=== PATIENT | female | born 1965 | race American Indian/Alaskan Native ===

== ENCOUNTER 2020-02-28 20:53 | Inpatient (IN) | payer OTHER ==
--- NOTE | 2020-02-28 22:48 | Event Note ---
ED Screening Note Date of service: 02/28/20 (n) Time: 22:48 ED Screening Note: This is a 54-year-old female with a history of diabetes and hypertension presents with shortness of breath stating that she chest with positive for Covid today This initial assessment/diagnostic orders/clinical plan/treatment(s) is/are subject to change based on patients health status, clinical progression and re- assessment by fellow clinical providers in the ED. Further treatment and workup at subsequent clinical providers discretion. Patient/guardian urged not to elope from the ED as their condition may be serious if not clinically assessed and managed. Initial orders include: Chest x-ray, labs ordered.
--- NOTE | 2020-02-28 23:57 | XRay Report ---
CHEST 2 VIEWS 2861 INDICATION / CLINICAL INFORMATION: sob COMPARISON: None available. FINDINGS: SUPPORT DEVICES: None. HEART / MEDIASTINUM: No significant abnormality. LUNGS / PLEURA: Bilateral basilar density on PA view is thought likely due to the patient's size. No definite acute infiltrates or effusions are seen. No pneumothorax. ADDITIONAL FINDINGS: No significant additional findings. IMPRESSION: No significant acute abnormality Signer Name: Checo Coronado MD Signed: 02/28/2020 11:53 PM Workstation Name: [id number]
[2020-02-29 00:03] LABS: C-Reactive Protein 4.4 mg/dL (0.00-1.30)
[2020-02-29] MEDS ORDERED: dexAMETHasone 4 MG/ML VIAL IV ONE (01:59)
[2020-02-29] MEDS ORDERED: cefTRIAXone/NS 2 GM/100 ML 2 GM/100 ML BAG IV ONE (01:59)
[2020-02-29] MEDS ORDERED: AZITHROMYCIN/NS 500 MG/250 ML 500 MG/250 ML BAG IV ONE (01:59)
--- NOTE | 2020-02-29 02:00 | Emergency Department Report ---
ED Shortness of Breath HPI - General Chief Complaint: Dyspnea/Respdistress Stated Complaint: COVID Time Seen by Provider: 02/29/20 01:46 Source: patient Mode of arrival: Ambulatory Limitations: No Limitations - History of Present Illness Initial Comments: Patient is a 54-year-old female that presents emergency room with complaints of body aches, cough, fever, shortness of breath, chills. Patient states her symptoms started 2 days ago. Patient states she was tested for Covid yesterday and it came back positive. Patient also complains of loss of smell. Patient states her shortness of breath better with rest and worse with exertion. Patient denies chest pain. Patient denies abdominal pain. Patient denies nausea and vomiting. Patient denies diarrhea. Patient denies recent travel. Patient denies recent international travel. Patient denies sick contacts. Patient denies diarrhea. Patient denies coming in contact with anybody with symptoms of the novel coronavirus. MD Complaint: shortness of breath, cough -: Sudden, days(s) Severity: severe Consistency: constant Improves With: rest Worsens With: exertion Context: recent URI Associated Symptoms: fever, cough Treatments Prior to Arrival: none - Related Data Home Oxygen Therapy: No Allergies Allergy/AdvReac Type Severity Reaction Status Date / Time latex Allergy Shortness Verified 02/28/20 22:36 of Breath ED Review of Systems ROS: Stated complaint: COVID Other details as noted in HPI Constitutional: chills, fever, malaise Eyes: denies: eye pain, eye discharge, vision change ENT: denies: ear pain, throat pain Respiratory: cough, shortness of breath, SOB with exertion, SOB at rest. denies: wheezing Cardiovascular: denies: chest pain, palpitations Endocrine: no symptoms reported Gastrointestinal: denies: abdominal pain, nausea, diarrhea Genitourinary: denies: urgency, dysuria, discharge Musculoskeletal: myalgia. denies: back pain, joint swelling, arthralgia Skin: denies: rash, lesions Neurological: denies: headache, weakness, paresthesias Psychiatric: denies: anxiety, depression Hematological/Lymphatic: denies: easy bleeding, easy bruising ED Past Medical Hx - Past Medical History Previous Medical History?: Yes Hx Hypertension: Yes Hx Diabetes: Yes - Surgical History Past Surgical History?: Yes Additional Surgical History: fibroid removal 2008 - Family History Family history: no significant - Social History Smoking Status: Never Smoker Substance Use Type: None ED Physical Exam - General Limitations: No Limitations General appearance: alert, in distress - Head Head exam: Present: atraumatic, normocephalic - Eye Eye exam: Present: normal appearance - ENT ENT exam: Present: mucous membranes moist - Neck Neck exam: Present: normal inspection - Respiratory Respiratory exam: Present: respiratory distress, decreased breath sounds - Cardiovascular Cardiovascular Exam: Present: regular rate, normal rhythm. Absent: systolic murmur, diastolic murmur, rubs, gallop - GI/Abdominal GI/Abdominal exam: Present: soft, normal bowel sounds - Extremities Exam Extremities exam: Present: normal inspection - Back Exam Back exam: Present: normal inspection - Neurological Exam Neurological exam: Present: alert, oriented X3 - Psychiatric Psychiatric exam: Present: normal affect, normal mood - Skin Skin exam: Present: warm, dry, intact, normal color. Absent: rash ED Course Vital Signs 02/28/20 22:35 Temperature 98.3 F Pulse Rate 80 Respiratory 22 Rate Blood Pressure 131/81 O2 Sat by Pulse 95 Oximetry - Reevaluation(s) Reevaluation #1: Patient placed on oxygen because she became hypoxic with only talking while on room air. Patient is on 2 L and her oxygen saturation is 98%. 02/29/20 01:46 Reevaluation #2: Patient states feeling a little better. Patient still requiring oxygen support. I discussed all results with patient. I discussed plan of care with patient. Patient agrees with plan of care and admission. Patient to be admitted to the hospitalist service. 02/29/20 03:36 - Consultations Consultation #1: Hospitalist consulted for admission. Hospitalist to admit patient. 02/29/20 03:36 Consultation #2: ID consult placed. 02/29/20 03:40 ED Medical Decision Making - Lab Data Result diagrams: 02/29/20 02:17 02/29/20 02:17 - Radiology Data Radiology results: report reviewed, image reviewed interpreted by me: Chest x-ray: Bilateral pneumonia, no pneumothorax, no foreign body, no osseous findings, - Medical Decision Making Patient is a 54-year-old female that presents emergency room with complaints of body aches, shortness of breath, fever, chills, cough and a positive Covid test. Patient symptoms been going on for 2 to 3 days. Patient symptoms are worsening. Patient had labs done which were unremarkable except for elevated Covid markers. Patient had a chest x-ray which was read as normal by the radiologist however shows a viral pneumonia distribution in the bilateral lungs. Patient's chest x-ray findings are consistent with Covid. Patient was found to be hypoxic in the ER. Patient required oxygen support. Patient was given steroids, antibiotics and fluids and the patient states she feels better but she still required 3 L of oxygen. Patient admitted to the hospitalist service for further evaluation treatment. - Differential Diagnosis Pneumonia, Covid, hypoxia, respiratory failure, S OB Critical Care Time: Yes Critical care time in (mins) excluding proc time.: 35 Critical care attestation.: If time is entered above; I have spent that time in minutes in the direct care of this critically ill patient, excluding procedure time. Critical Care Time: 35 minutes ED Disposition Clinical Impression: SOB (shortness of breath), COVID-19, Cough Respiratory failure Qualifiers: Chronicity: acute Respiratory failure complication: hypoxia Qualified Code(s): J96.01 - Acute respiratory failure with hypoxia Pneumonia Qualifiers: Pneumonia type: due to unspecified organism Laterality: bilateral Lung location: unspecified part of lung Qualified Code(s): J18.9 - Pneumonia, unspecified organism Fever Qualifiers: Fever type: unspecified Qualified Code(s): R50.9 - Fever, unspecified Disposition: DC-09 OP ADMIT IP TO THIS HOSP Is pt being admited?: Yes Does the pt Need Aspirin: No Condition: Critical Instructions: Bacterial Pneumonia (ED) Time of Disposition: 03:40
[2020-02-29 03:01] LABS: Basophils % (Auto) 0.3 % (0.0-1.8); Eosinophils % (Auto) 0.6 % (0.0-4.3); Hemoglobin 14.2 gm/dl (10.1-14.3); Lymphocytes # (Auto) 1.6 K/mm3 (1.2-5.4); Lymphocytes % (Auto) 37.8 % (13.4-35.0); Mean Corpuscular HGB Conc 33 % (30-34); Mean Corpuscular Volume 89 fl (79-97); Monocytes # (Auto) 0.5 K/mm3 (0.0-0.8); Monocytes % (Auto) 10.5 % (0.0-7.3); Platelet Count 259 K/mm3 (140-440); Red Blood Count 4.86 M/mm3 (3.65-5.03); Red Cell Distribution Width 13.6 % (13.2-15.2)
[2020-02-29 03:12] LABS: Alanine Aminotransferase 7 units/L (7-56); Albumin 3.8 g/dL (3.9-5); BUN/Creatinine Ratio 16; Blood Urea Nitrogen 13 mg/dL (7-17); Calcium 8.7 mg/dL (8.4-10.2); Hemolysis Index 0
[2020-02-29] MEDS ORDERED: DEXTROSE 50% IN WATER (25GM) 50 ML SYRINGE IV PRN ×2 (04:37→08:08)
[2020-02-29] MEDS ORDERED: MAGNESIUM HYDROXIDE (MOM) ORAL LIQD UDC PO PRN (04:37)
[2020-02-29] MEDS ORDERED: ONDANSETRON 4 MG/2 ML INJ IV PRN (04:37)
[2020-02-29] MEDS ORDERED: MORPHINE 2 MG/1 ML INJ IV PRN (04:37)
[2020-02-29] MEDS ORDERED: ACETAMINOPHEN 325 MG TAB PO PRN (04:37)
--- NOTE | 2020-02-29 04:47 | History and Physical Report ---
History of Present Illness Date of examination: 02/29/20 Date of admission: 02/29/2020 Chief complaint: Generalized body weakness Cough Shortness of breath Fever History of present illness: 4-year-old -Citizen Of [place] female seen in the emergency room today with comp laint of generalized body aches and pain, cough and shortness of breath, cough fever with chills a lot which started 2 days ago. Patient tested positive for COVID-19 yesterday. Shortness of breath is said to be worse on on exertion and improves upon resting. Patient denies any chest pain, no nausea vomiting, no headache or dizziness, no hematuria or dysuria. She admits to losing her sense of smell. She denies any sick contacts and no recent travel. She denies any contact with anyone with COVID-19. Work-up in the emergency room, chest x-ray was suspicious for pneumonia. Patient admitted with pneumonia possibly secondary to to COVID-19. Past History Past Medical History: diabetes, hypertension Past Surgical History: Other (Fibroid removal in 2008) Social history: no significant social history Family history: no significant family history Medications and Allergies Allergies Allergy/AdvReac Type Severity Reaction Status Date / Time latex Allergy Shortness Verified 02/28/20 22:36 of Breath Active Meds: Active Medications Acetaminophen (Acetaminophen 325 Mg Tab) 650 mg PO Q4H PRN PRN Reason: Pain MILD(1-3)/Fever >100.5/ANDUJAR Dextrose (Dextrose 50% In Water (25gm) 50 Ml Syringe) 50 ml IV Q30MIN PRN; Protocol PRN Reason: Hypoglycemia Enoxaparin Sodium (Enoxaparin 40 Mg/0.4 Ml Inj) 40 mg SUB-Q QDAY@2200 [facility]; Protocol Ceftriaxone Sodium (Rocephin/Ns 2 Gm/100 Ml) 2 gm in 100 mls @ 200 mls/hr IV Q24H [facility]; Protocol Azithromycin (Zithromax/Ns) 500 mg in 250 mls @ 250 mls/hr IV Q24H [facility]; Protocol Magnesium Hydroxide (Magnesium Hydroxide (Mom) Oral Liqd Udc) 30 ml PO Q4H PRN PRN Reason: Constipation Morphine Sulfate (Morphine 2 Mg/1 Ml Inj) 2 mg IV Q4H PRN PRN Reason: Pain, Moderate (4-6) Ondansetron HCl (Ondansetron 4 Mg/2 Ml Inj) 4 mg IV Q8H PRN PRN Reason: Nausea And Vomiting Sodium Chloride (Sodium Chloride 0.9% 10 Ml Flush Syringe) 10 ml IV BID JAVY Sodium Chloride (Sodium Chloride 0.9% 10 Ml Flush Syringe) 10 ml IV PRN PRN PRN Reason: LINE FLUSH Review of Systems Constitutional: fever, chills, weakness Ears, nose, mouth and throat: no nasal congestion, no sore throat Cardiovascular: no chest pain, no palpitations Respiratory: cough, shortness of breath, no wheezing Gastrointestinal: no abdominal pain, no nausea, no vomiting, no diarrhea, no loss of appetite Genitourinary Female: no pelvic pain, no flank pain, no dysuria, no hematuria Musculoskeletal: no neck pain, no low back pain Integumentary: no rash, no pruritis Neurological: no headaches, no confusion Psychiatric: no anxiety, no depression Exam - Constitutional Vitals: Temp Pulse Resp BP Pulse Ox 98.3 F 82 19 166/91 100 02/28/20 22:35 02/29/20 04:20 02/29/20 04:20 02/29/20 04:20 02/29/20 04:20 General appearance: Present: no acute distress, well-nourished - EENT Eyes: Present: PERRL, EOM intact. Absent: scleral icterus ENT: hearing intact, clear oral mucosa, dentition normal - Neck Neck: Present: supple, normal ROM - Respiratory Respiratory effort: normal Respiratory: bilateral: diminished - Cardiovascular Rhythm: regular Heart Sounds: Present: S1 & S2. Absent: gallop, systolic murmur, diastolic murmur, rub - Extremities Extremities: no ischemia, pulses intact, pulses symmetrical, No edema, normal temperature, normal color, Full ROM Peripheral Pulses: within normal limits - Abdominal General gastrointestinal: Present: soft, non-tender, non-distended, normal bowel sounds. Absent: mass - Integumentary Integumentary: Present: clear, warm, dry. Absent: rash - Musculoskeletal Musculoskeletal: strength equal bilaterally - Psychiatric Psychiatric: appropriate mood/affect, intact judgment & insight, memory intact, cooperative - Neurologic Neurologic: CNII-XII intact, no focal deficits, moves all extremities Results - Labs CBC & Chem 7: 02/29/20 02:17 02/29/20 02:17 Labs: Abnormal lab results 02/28/20 02/28/20 02/29/20 Range/Units 22:57 22:57 02:17 WBC 4.3 L (4.5-11.0) K/mm3 Hct 43.0 H (30.3-42.9) % Lymph % (Auto) 37.8 H (13.4-35.0) % [place] % (Auto) 10.5 H (0.0-7.3) % D-Dimer 345.92 H (0-234) ng/mlDDU Sodium (137-145) mmol/L Chloride (98-107) mmol/L Glucose 324 H (65-100) mg/dL Lactate Dehydrogenase 248 H (91-180) units/L C-Reactive Protein 4.40 H (0.00-1.30) mg/dL Albumin (3.9-5) g/dL 02/29/20 02/29/20 02/29/20 Range/Units 02:17 02:17 02:17 WBC (4.5-11.0) K/mm3 Hct (30.3-42.9) % Lymph % (Auto) (13.4-35.0) % [place] % (Auto) (0.0-7.3) % D-Dimer 395.33 H (0-234) ng/mlDDU Sodium 136 L (137-145) mmol/L Chloride 96.9 L (98-107) mmol/L Glucose 284 H 284 H (65-100) mg/dL Lactate Dehydrogenase (91-180) units/L C-Reactive Protein (0.00-1.30) mg/dL Albumin 3.8 L (3.9-5) g/dL Assessment and Plan - Patient Problems (1) Pneumonia Current Visit: Yes Status: Acute Qualifiers: Pneumonia type: due to unspecified organism Laterality: bilateral Lung location: unspecified part of lung Qualified Code(s): J18.9 - Pneumonia, unspecified organism Plan to address problem: Patient placed on antibiotics. We will await culture results. (2) COVID-19 Current Visit: Yes Status: Acute Plan to address problem: Patient placed on isolation precaution and also started on IV steroid.. Consult placed to infectious disease for evaluation. (3) Diabetes mellitus Current Visit: Yes Status: Acute Plan to address problem: We will monitor Accu-Cheks. (4) Hypertension Current Visit: Yes Status: Acute Plan to address problem: We will resume routine home medications and monitor vital signs closely. (5) DVT prophylaxis Current Visit: Yes Status: Acute Plan to address problem: Patient placed on subcutaneous Lovenox. (6) Full code status Current Visit: Yes Status: Acute Plan to address problem: Patient is a full code.
[2020-02-29 05:17] LABS: C-Reactive Protein 4.8 mg/dL (0.00-1.30)
[2020-02-29] MEDS ORDERED: hydrALAZINE 20 MG/1 ML INJ IV PRN (06:11)
--- NOTE | 2020-02-29 08:12 | Event Note ---
Date: 02/29/20 Patient seen and examined on 4 L of oxygen still feels short of breath although reports mild improvement. ID consulted will consult pulmonary. We will continue her home medications. Encourage prone positioning we will add some vitamins. Monitor inflammatory markers intermittently while in-house.
[2020-02-29 09:59] LABS: Chol/HDL Ratio 5.06 %
[2020-02-29] MEDS: DEXAMETHASONE 4 MG TAB PO SCH (09:59)
[2020-02-29] MEDS: hydroCHLOROthiazide 12.5 MG CAP PO SCH (10:00)
[2020-02-29] MEDS ORDERED: DAPAGLIFLOZIN (NF) PROPANEDIOL 5 MG TAB PO SCH (10:00)
[2020-02-29] MEDS ORDERED: AZITHROMYCIN/NS 500 MG/250 ML 500 MG/250 ML BAG IV SCH (10:00)
[2020-02-29] MEDS ORDERED: dexAMETHasone 4 MG/ML VIAL IV SCH (10:00)
[2020-02-29] MEDS: LISINOPRIL 20 MG TAB PO SCH (10:18)
[2020-02-29] MEDS: amLODIPine 10 MG TAB PO SCH (10:18)
[2020-02-29] MEDS: INSULIN LISPRO 100 UNIT/ML SUB-Q SCH ×4 (10:19→22:23)
[2020-02-29] MEDS ORDERED: INSULIN LISPRO 100 UNIT/ML SUB-Q SCH (11:30)
[2020-02-29] MEDS: CHOLECALCIFEROL (VIT D3) 5,000 UNIT TAB PO SCH (11:51)
[2020-02-29] MEDS: ASCORBIC ACID 500 MG TAB PO SCH ×2 (11:51→21:18)
[2020-02-29] MEDS: ZINC SULFATE 220 MG CAP PO SCH (11:51)
--- NOTE | 2020-02-29 13:48 | Consultation ---
History of Present Illness - Reason for Consult Consult date: 02/29/20 COVID Requesting physician: OZZIE MACHADO - History of Present Illness 55 years old female with history of hypertension and morbid obesity admitted on 02/28/2020 secondary to 2-day history of generalized fatigue, cough, fever and shortness of breath. Patient tested positive for COVID-19 the day before admission. Shortness of breath is worsening. On arrival, temperature 98.3, HR 80, RR 22, O2 sat 95%, BP 131/81. Initial WBC 4.3. D-dimer 395. CRP 4.4. Ferritin 155. Chest x-ray with no consolidations. O2 sat dropped to 93% patient is currently on 2 L nasal cannula. Review of Systems: reviewed ED and H&P notes. Review of system deferred to minimize COVID-19 transmission. Past History Past Medical History: diabetes, hypertension Past Surgical History: Other (Fibroid removal in 2008) Social history: no significant social history Family history: no significant family history Medications and Allergies Allergies Allergy/AdvReac Type Severity Reaction Status Date / Time latex Allergy Shortness Verified 02/28/20 22:36 of Breath Home Medications Medication Instructions Recorded Confirmed Last Taken Type Dapagliflozin Propanediol [Farxiga] 10 mg PO DAILY 02/29/20 02/29/20 02/27/20 History 10 mg Lisinopril/Hydrochlorothiazide 1 each PO DAILY 02/29/20 02/29/20 02/27/20 History [Zestoretic 10-12.5 mg Tablet] 1 tab Metformin HCl [metFORMIN] 1,000 mg PO BID 02/29/20 02/29/20 02/27/20 History 1000 mg amLODIPine [Norvasc] 10 mg PO DAILY 02/29/20 02/29/20 02/27/20 History 10 mg Active Meds: Active Medications Acetaminophen (Acetaminophen 325 Mg Tab) 650 mg PO Q4H PRN PRN Reason: Pain MILD(1-3)/Fever >100.5/ANDUJAR Last Admin: 02/29/20 13:37 Dose: 650 mg Documented by: Amlodipine Besylate (Amlodipine 10 Mg Tab) 10 mg PO QDAY [facility] Last Admin: 02/29/20 10:18 Dose: 10 mg Documented by: Ascorbic Acid (Ascorbic Acid 500 Mg Tab) 1,000 mg PO BID [facility] Last Admin: 02/29/20 11:51 Dose: 1,000 mg Documented by: Azithromycin (Azithromycin 250 Mg Tab) 500 mg PO QHS [facility] Stop: 03/03/20 22:01 Cholecalciferol (Cholecalciferol (Vit D3) 5,000 Unit Tab) 5,000 unit PO DAILY [facility] Last Admin: 02/29/20 11:51 Dose: 5,000 unit Documented by: Dexamethasone (Dexamethasone 4 Mg Tab) 6 mg PO DAILY [facility] Stop: 03/09/20 10:01 Last Admin: 02/29/20 09:59 Dose: 6 mg Documented by: Dextrose (Dextrose 50% In Water (25gm) 50 Ml Syringe) 50 ml IV Q30MIN PRN; Protocol PRN Reason: Hypoglycemia Enoxaparin Sodium (Enoxaparin 40 Mg/0.4 Ml Inj) 40 mg SUB-Q QDAY@2200 [facility]; Protocol Hydralazine HCl (Hydralazine 20 Mg/1 Ml Inj) 10 mg IV Q4H PRN PRN Reason: Blood Pressure Hydrochlorothiazide (Hydrochlorothiazide 12.5 Mg Cap) 12.5 mg PO QDAY [facility] Last Admin: 02/29/20 10:00 Dose: 12.5 mg Documented by: Ceftriaxone Sodium (Rocephin/Ns 2 Gm/100 Ml) 2 gm in 100 mls @ 200 mls/hr IV Q24HR@2200 [facility]; Protocol Insulin Glargine (Insulin Glargine 100 Units/Ml) 20 units SUB-Q QHS [facility] Insulin Human Lispro (Insulin Lispro 100 Unit/Ml) 0 unit SUB-Q ACHS [facility]; Protocol Last Admin: 02/29/20 11:45 Dose: 8 unit Documented by: Lisinopril (Lisinopril 20 Mg Tab) 20 mg PO QDAY [facility] Last Admin: 02/29/20 10:18 Dose: 20 mg Documented by: Magnesium Hydroxide (Magnesium Hydroxide (Mom) Oral Liqd Udc) 30 ml PO Q4H PRN PRN Reason: Constipation Morphine Sulfate (Morphine 2 Mg/1 Ml Inj) 2 mg IV Q4H PRN PRN Reason: Pain, Moderate (4-6) Ondansetron HCl (Ondansetron 4 Mg/2 Ml Inj) 4 mg IV Q8H PRN PRN Reason: Nausea And Vomiting Sodium Chloride (Sodium Chloride 0.9% 10 Ml Flush Syringe) 10 ml IV BID [facility] Last Admin: 02/29/20 10:18 Dose: 10 ml Documented by: Sodium Chloride (Sodium Chloride 0.9% 10 Ml Flush Syringe) 10 ml IV PRN PRN PRN Reason: LINE FLUSH Zinc Sulfate (Zinc Sulfate 220 Mg Cap) 220 mg PO QDAY [facility] Last Admin: 02/29/20 11:51 Dose: 220 mg Documented by: Physical Examination - Physical Exam Narrative exam: Physical exam deferred to minimize COVID-19 transmission during pandemic. ER and internal medicine physical examination notes reviewed. - Constitutional Vitals: Vital Signs Temp Pulse Resp BP Pulse Ox 98 F 89 20 133/76 96 02/29/20 10:10 02/29/20 10:10 02/29/20 10:10 02/29/20 10:18 02/29/20 10:10 Temperature -Last 24 Hours Temperature 98.0 F Temperature 98 F Temperature 98.3 F Temperature 98.3 F Results - Labs CBC & Chem 7: 02/29/20 02:17 02/29/20 12:30 Labs: Abnormal lab results 02/28/20 02/28/20 02/29/20 Range/Units 22:57 22:57 02:17 WBC 4.3 L (4.5-11.0) K/mm3 Hct 43.0 H (30.3-42.9) % Lymph % (Auto) 37.8 H (13.4-35.0) % [place] % (Auto) 10.5 H (0.0-7.3) % D-Dimer 345.92 H (0-234) ng/mlDDU Sodium (137-145) mmol/L Chloride (98-107) mmol/L Glucose 324 H (65-100) mg/dL POC Glucose (70-105) mg/dL Lactate Dehydrogenase 248 H (91-180) units/L C-Reactive Protein 4.40 H (0.00-1.30) mg/dL Albumin (3.9-5) g/dL HDL Cholesterol (40-59) mg/dL 02/29/20 02/29/20 02/29/20 Range/Units 02:17 02:17 02:17 WBC (4.5-11.0) K/mm3 Hct (30.3-42.9) % Lymph % (Auto) (13.4-35.0) % [place] % (Auto) (0.0-7.3) % D-Dimer 395.33 H (0-234) ng/mlDDU Sodium 136 L (137-145) mmol/L Chloride 96.9 L (98-107) mmol/L Glucose 284 H 284 H (65-100) mg/dL POC Glucose (70-105) mg/dL Lactate Dehydrogenase 237 H (91-180) units/L C-Reactive Protein 4.80 H (0.00-1.30) mg/dL Albumin 3.8 L (3.9-5) g/dL HDL Cholesterol (40-59) mg/dL 02/29/20 02/29/20 02/29/20 Range/Units 06:28 07:42 08:43 WBC (4.5-11.0) K/mm3 Hct (30.3-42.9) % Lymph % (Auto) (13.4-35.0) % [place] % (Auto) (0.0-7.3) % D-Dimer (0-234) ng/mlDDU Sodium (137-145) mmol/L Chloride (98-107) mmol/L Glucose (65-100) mg/dL POC Glucose 332 H 359 H (70-105) mg/dL Lactate Dehydrogenase (91-180) units/L C-Reactive Protein (0.00-1.30) mg/dL Albumin (3.9-5) g/dL HDL Cholesterol 30 L (40-59) mg/dL 02/29/20 02/29/20 Range/Units 11:02 12:30 WBC (4.5-11.0) K/mm3 Hct (30.3-42.9) % Lymph % (Auto) (13.4-35.0) % [place] % (Auto) (0.0-7.3) % D-Dimer (0-234) ng/mlDDU Sodium (137-145) mmol/L Chloride (98-107) mmol/L Glucose 458 H (65-100) mg/dL POC Glucose 526 H (70-105) mg/dL Lactate Dehydrogenase (91-180) units/L C-Reactive Protein (0.00-1.30) mg/dL Albumin (3.9-5) g/dL HDL Cholesterol (40-59) mg/dL Assessment and Plan Cultures: SARS CoV2 PCR positive outpatient Assessment: 55 years old female with history of hypertension and morbid obesity admitted on 02/28/2020 secondary to 2 days history of generalized fatigue, cough, fever, shortness of breath: #Severe COVID pneumonia: Chest x-ray with impressive consolidation. Inflammatory markers elevated except ferritin. #Acute hypoxemic respiratory failure: Sats down to 93%, patient currently on 2 L. #Diabetes mellitus: Uncontrolled Recommendations: -Started on Dexamethasone 6 mg IV/PO daily for 10 days -Start Remdesivir for 5 days (CrCl>30 mg/mL) -SARS-CoV-2 PCR positive as an outpatient -Monitor inflammatory markers - ferritin, Ddimer, CRP, LDH -Monitor liver function test on Remdesivir -Continue anticoagulation per System Protocol -Prone positioning as possible -Obtain procalcitonin. Stop ceftriaxone and azithromycin if procalcitonin <0.25 ng/mL All laboratory, cultures and imaging were reviewed. Will follow Bety Robles MD Infectious Diseases [facility] M [phone] O [phone]
[2020-02-29] MEDS ORDERED: REMDESIVIR 200 MG in SODIUM CHLORIDE 0.9% 250ML 250 ML IV ONE (16:00)
[2020-02-29] MEDS ORDERED: REMDESIVIR 100 MG VIAL IV ONE (16:00)
[2020-02-29] MEDS: SODIUM CHLORIDE 0.9% 50 ML IVPB IV SCH (17:12)
[2020-02-29] MEDS: ENOXAPARIN 40 MG/0.4 ML INJ SUB-Q SCH (21:18)
[2020-02-29] MEDS ORDERED: cefTRIAXone/NS 2 GM/100 ML 2 GM/100 ML BAG IV SCH (22:00)
[2020-02-29] MEDS ORDERED: INSULIN GLARGINE 100 UNITS/ML SUB-Q SCH (22:00)
[2020-02-29] MEDS ORDERED: AZITHROMYCIN 250 MG TAB PO SCH (22:00)
[2020-03-01] MEDS ORDERED: ALBUTEROL 8.5 GM MDI INHALATION IH PRN (05:47)
[2020-03-01 06:04] LABS: Basophils % (Auto) 0.2 % (0.0-1.8); Hemoglobin 14.1 gm/dl (10.1-14.3); Lymphocytes # (Auto) 0.9 K/mm3 (1.2-5.4); Mean Corpuscular HGB Conc 34 % (30-34); Mean Corpuscular Volume 87 fl (79-97); Monocytes # (Auto) 0.5 K/mm3 (0.0-0.8); Monocytes % (Auto) 11.2 % (0.0-7.3); Platelet Count 281 K/mm3 (140-440); Red Blood Count 4.82 M/mm3 (3.65-5.03); Red Cell Distribution Width 13.6 % (13.2-15.2)
[2020-03-01 06:10] LABS: INR 1.01 (0.87-1.13)
[2020-03-01 06:18] LABS: BUN/Creatinine Ratio 27; Blood Urea Nitrogen 19 mg/dL (7-17); Hemolysis Index 9
[2020-03-01 06:27] LABS: Alanine Aminotransferase 8 units/L (7-56); Albumin 3.6 g/dL (3.9-5)
[2020-03-01 06:28] LABS: Bilirubin,Direct < 0.2 mg/dL (0-0.2)
[2020-03-01] MEDS: INSULIN LISPRO 100 UNIT/ML SUB-Q SCH ×4 (08:19→22:56)
[2020-03-01] MEDS: hydroCHLOROthiazide 12.5 MG CAP PO SCH (09:03)
[2020-03-01] MEDS: amLODIPine 10 MG TAB PO SCH (09:04)
[2020-03-01] MEDS: LISINOPRIL 20 MG TAB PO SCH (09:04)
[2020-03-01] MEDS: DEXAMETHASONE 4 MG TAB PO SCH (09:04)
[2020-03-01] MEDS: CHOLECALCIFEROL (VIT D3) 5,000 UNIT TAB PO SCH (09:04)
[2020-03-01] MEDS: ZINC SULFATE 220 MG CAP PO SCH (09:04)
[2020-03-01] MEDS: ASCORBIC ACID 500 MG TAB PO SCH ×2 (09:19→22:57)
--- NOTE | 2020-03-01 11:33 | Progress Note ---
Assessment and Plan Assessment and plan: 54 year-old -Nepalese female seen in the emergency room today with complaint of generalized body aches and pain, cough and shortness of breath, cough fever with chills a lot which started 2 days ago. Patient tested positive for COVID-19 yesterday. Shortness of breath is said to be worse on on exertion and improves upon resting. Patient denies any chest pain, no nausea vomiting, no headache or dizziness, no hematuria or dysuria. She admits to losing her sense of smell. She denies any sick contacts and no recent travel. She denies any contact with anyone with COVID-19. Work-up in the emergency room, chest x-ray was suspicious for pneumonia. Patient admitted with pneumonia possibly secondary to to COVID-19. 03/01: Continues with mild hypoxia, and on oxygen, prones her self, cough and c hest pain with the cough due to Muscle pain. Adjust insulin. Discussed with the patient and also with the Nurse, will make adjustments to diet as requested by the patient. (1) Pneumonia Current Visit: Yes Status: Acute Qualifiers: Pneumonia type: due to unspecified organism Laterality: bilateral Lung location: unspecified part of lung Qualified Code(s): J18.9 - Pneumonia, unspecified organism Plan to address problem: Patient placed on antibiotics. We will await culture results. (2) COVID-19 Current Visit: Yes Status: Acute Plan to address problem: Patient placed on isolation precaution and also started on IV steroid.. Consult placed to infectious disease for evaluation. (3) Diabetes mellitus with hyperglycemia Current Visit: Yes Status: Acute Plan to address problem: We will monitor Accu-Cheks. (4) Hypertension Current Visit: Yes Status: Acute Plan to address problem: We will resume routine home medications and monitor vital signs closely. (5) Leukopenia (6) DVT prophylaxis Current Visit: Yes Status: Acute Plan to address problem: Patient placed on subcutaneous Lovenox. (7) Full code status Current Visit: Yes Status: Acute Plan to address problem: Patient is a full code. History Interval history: Patient seen and examined, still with shortness of breath and cough, complained of some tightness associated with cough Hospitalist Physical - Constitutional Vitals: Temp Pulse Resp BP Pulse Ox 98.8 F 75 20 150/74 100 03/01/20 04:45 03/01/20 09:04 03/01/20 04:45 03/01/20 09:04 03/01/20 10:30 General appearance: Present: mild distress, well-nourished - EENT Eyes: Present: PERRL, EOM intact - Neck Neck: Present: supple, normal ROM - Respiratory Respiratory effort: normal Respiratory: bilateral: diminished - Cardiovascular Rhythm: regular Heart Sounds: Present: S1 & S2. Absent: systolic murmur, diastolic murmur - Extremities Extremities: no ischemia, pulses intact, pulses symmetrical, No edema, normal temperature, normal color, Full ROM, abnormal Peripheral Pulses: within normal limits - Abdominal General gastrointestinal: soft, non-tender, non-distended - Integumentary Integumentary: Present: clear, warm, dry - Psychiatric Psychiatric: appropriate mood/affect, intact judgment & insight, cooperative - Allied Health Allied health notes reviewed: nursing, social work Results - Labs CBC & Chem 7: 03/01/20 04:24 03/01/20 04:24 Labs: Laboratory Last Values WBC 4.4 K/mm3 (4.5-11.0) L 03/01/20 04:24 RBC 4.82 M/mm3 (3.65-5.03) 03/01/20 04:24 Hgb 14.1 gm/dl (10.1-14.3) 03/01/20 04:24 Hct 42.0 % (30.3-42.9) 03/01/20 04:24 MCV 87 fl (79-97) 03/01/20 04:24 MCH 29 pg (28-32) 03/01/20 04:24 MCHC 34 % (30-34) 03/01/20 04:24 RDW 13.6 % (13.2-15.2) 03/01/20 04:24 Plt Count 281 K/mm3 (140-440) 03/01/20 04:24 Lymph % (Auto) 20.0 % (13.4-35.0) 03/01/20 04:24 [place] % (Auto) 11.2 % (0.0-7.3) H 03/01/20 04:24 Eos % (Auto) 0.0 % (0.0-4.3) 03/01/20 04:24 Baso % (Auto) 0.2 % (0.0-1.8) 03/01/20 04:24 Lymph # (Auto) 0.9 K/mm3 (1.2-5.4) L 03/01/20 04:24 [place] # (Auto) 0.5 K/mm3 (0.0-0.8) 03/01/20 04:24 Eos # (Auto) 0.0 K/mm3 (0.0-0.4) 03/01/20 04:24 Baso # (Auto) 0.0 K/mm3 (0.0-0.1) 03/01/20 04:24 Seg Neutrophils % 68.6 % (40.0-70.0) 03/01/20 04:24 Seg Neutrophils # 3.1 K/mm3 (1.8-7.7) 03/01/20 04:24 PT 13.2 Sec. (12.2-14.9) 03/01/20 04:24 INR 1.01 (0.87-1.13) 03/01/20 04:24 D-Dimer 284.01 ng/mlDDU (0-234) H 03/01/20 04:24 Sodium 139 mmol/L (137-145) 03/01/20 04:24 Potassium 4.5 mmol/L (3.6-5.0) 03/01/20 04:24 Chloride 101.0 mmol/L (98-107) 03/01/20 04:24 Carbon Dioxide 25 mmol/L (22-30) 03/01/20 04:24 Anion Gap 18 mmol/L 03/01/20 04:24 BUN 19 mg/dL (7-17) H 03/01/20 04:24 Creatinine 0.7 mg/dL (0.6-1.2) 03/01/20 04:24 Estimated GFR > 60 ml/min 03/01/20 04:24 BUN/Creatinine Ratio 27 % 03/01/20 04:24 Glucose 420 mg/dL (65-100) H 03/01/20 04:24 POC Glucose 365 mg/dL (70-105) H 03/01/20 07:46 Calcium 9.0 mg/dL (8.4-10.2) 03/01/20 04:24 Ferritin 173.1 ng/mL (10.0-200.0) 03/01/20 04:24 Total Bilirubin < 0.20 mg/dL (0.1-1.2) 03/01/20 04:24 Direct Bilirubin < 0.2 mg/dL (0-0.2) 03/01/20 04:24 Indirect Bilirubin 0.0 mg/dL 03/01/20 04:24 AST 11 units/L (5-40) 03/01/20 04:24 ALT 8 units/L (7-56) 03/01/20 04:24 Alkaline Phosphatase 118 units/L (35-129) 03/01/20 04:24 Lactate Dehydrogenase 251 units/L (91-180) H 03/01/20 04:24 C-Reactive Protein 6.20 mg/dL (0.00-1.30) H 03/01/20 04:24 Total Protein 7.6 g/dL (6.3-8.2) 03/01/20 04:24 Albumin 3.6 g/dL (3.9-5) L 03/01/20 04:24 Albumin/Globulin Ratio 0.9 % 03/01/20 04:24 Triglycerides 84 mg/dL (2-149) 02/29/20 08:43 Cholesterol 152 mg/dL (50-199) 02/29/20 08:43 LDL Cholesterol Direct 110 mg/dL (50-130) 02/29/20 08:43 HDL Cholesterol 30 mg/dL (40-59) L 02/29/20 08:43 Cholesterol/HDL Ratio 5.06 % 02/29/20 08:43 Procalcitonin < 0.05 ng/mL (<0.15) 02/28/20 22:57 Coronavirus (PCR) Positive (Negative) A 02/29/20 Unknown [place]/IV: Voiding Method Toilet IV Catheter Type [Right INT / Saline Lock Antecubital] Active Medications - Current Medications Current Medications: Generic Name Dose Route Start Last Admin Trade Name Freq PRN Reason Stop Dose Admin Acetaminophen 650 mg 02/29/20 04:37 02/29/20 13:37 Acetaminophen 325 Mg Tab PO 650 mg Q4H PRN Administration Pain MILD(1-3)/Fever >100.5/ANDUJAR Albuterol 2 puff 03/01/20 05:47 Albuterol 8.5 Gm Mdi Inhalation IH Q4HRT PRN Shortness Of Breath Amlodipine Besylate 10 mg 02/29/20 10:00 03/01/20 09:04 Amlodipine 10 Mg Tab PO 10 mg QDAY JAVY Administration Ascorbic Acid 1,000 mg 02/29/20 11:00 03/01/20 09:19 Ascorbic Acid 500 Mg Tab PO 1,000 mg BID JAVY Administration Cholecalciferol 5,000 unit 02/29/20 11:00 03/01/20 09:04 Cholecalciferol (Vit D3) 5,000 Unit Tab PO 5,000 unit DAILY JAVY Administration Dexamethasone 6 mg 02/29/20 10:00 03/01/20 09:04 Dexamethasone 4 Mg Tab PO 03/09/20 10:01 6 mg DAILY JAVY Administration Dextrose 50 ml 02/29/20 08:08 Dextrose 50% In Water (25gm) 50 Ml Syringe IV Q30MIN PRN Hypoglycemia Protocol Enoxaparin Sodium 40 mg 02/29/20 22:00 02/29/20 21:18 Enoxaparin 40 Mg/0.4 Ml Inj SUB-Q 40 mg QDAY@2200 [facility] Administration Protocol Hydralazine HCl 10 mg 02/29/20 06:11 02/29/20 22:40 Hydralazine 20 Mg/1 Ml Inj IV 10 mg Q4H PRN Administration Blood Pressure Hydrochlorothiazide 12.5 mg 02/29/20 10:00 03/01/20 09:03 Hydrochlorothiazide 12.5 Mg Cap PO 12.5 mg QDAY [facility] Administration REMDESIVIR 100 mg/ Sodium 250 mls @ 500 mls/hr 03/01/20 21:00 Chloride IV 03/04/20 21:29 Q24HR@2100 [facility] Insulin Glargine 30 units 03/01/20 22:00 Insulin Glargine 100 Units/Ml SUB-Q QHS [facility] Insulin Human Lispro 0 unit 02/29/20 09:00 03/01/20 08:19 Insulin Lispro 100 Unit/Ml SUB-Q 10 unit ACHS [facility] Administration Protocol Insulin Human Regular 15 units 03/01/20 11:30 Insulin Regular, Human 100 Units/1 Ml SUB-Q 03/01/20 11:31 ONCE ONE Lisinopril 20 mg 02/29/20 10:00 03/01/20 09:04 Lisinopril 20 Mg Tab PO 20 mg QDAY [facility] Administration Magnesium Hydroxide 30 ml 02/29/20 04:37 Magnesium Hydroxide (Mom) Oral Liqd Udc PO Q4H PRN Constipation Morphine Sulfate 2 mg 02/29/20 04:37 Morphine 2 Mg/1 Ml Inj IV Q4H PRN Pain, Moderate (4-6) Ondansetron HCl 4 mg 02/29/20 04:37 Ondansetron 4 Mg/2 Ml Inj IV Q8H PRN Nausea And Vomiting Sodium Chloride 10 ml 02/29/20 10:00 03/01/20 10:42 Sodium Chloride 0.9% 10 Ml Flush Syringe IV 10 ml BID JAVY Administration Sodium Chloride 10 ml 02/29/20 04:37 Sodium Chloride 0.9% 10 Ml Flush Syringe IV PRN PRN LINE FLUSH Sodium Chloride 50 ml 02/29/20 16:00 02/29/20 17:12 Sodium Chloride 0.9% 50 Ml Ivpb IV 03/04/20 21:01 50 ml Q24HR@2100 JAVY Administration Zinc Sulfate 220 mg 02/29/20 11:00 03/01/20 09:04 Zinc Sulfate 220 Mg Cap PO 220 mg QDAY JAVY Administration Nutrition/Malnutrition Assess - Dietary Evaluation Nutrition/Malnutrition Findings: Nutrition Notes Start: 02/29/20 14:20 Freq: Status: Active Protocol: Document 02/29/20 14:20 CW (Rec: 02/29/20 14:38 CW [id number]) Co-Sign 02/29/20 14:20 MK Nutrition Notes Need for Assessment generated from: MD Order,MST,Education Initial or Follow up Brief Note Current Diagnosis Diabetes,Hypertension Other Pertinent Diagnosis dyspnea, loss of smell, COVID (+) Current Diet Consistent CHO diet Height 4 ft 11 in Weight 92.533 kg [place] Body Weight (kg) 43.18 BMI 41.2 Weight Status Morbidly Obese Subjective/Other Information Consult for MD diet education and RN screening for skin risk , chew/swallow difficulties, and TF. Per RN pt does not have TF, denies chew/ swallowing difficulties, and does not have any current skin breakdown. Pt was accepting to diet education and reports intentional wt loss with UBW od 224lbs. Gave RN AND handouts and recorded pt diet preferences. No indication of MST/skin risk. Burn Absent Trauma Absent GI Symptoms None #1 Nutrition Diagnosis Food and nutrition-related knowledge deficit Etiology DM, HTN As Evidenced by Signs and Symptoms Pt requests information about carbohydrates and heart healthy diet Nutrition Intervention Teaching Recipient Patient Learning Readiness Good Teaching Methods Discussion,Handout Response to Teaching Verbalize understanding Education Handouts Provided AND CHO counting AND DM food label Barriers to Learning No Barriers RD phone number provided Yes Patient aware of follow up options Yes Goal #1 Adherence to DM diet recommendations Anticipated Discharge Needs: Consistent CHO diet Revisit per MD consult or patient Sign Off request:
[2020-03-01] MEDS ORDERED: INSULIN REGULAR, HUMAN 100 UNITS/1 ML SUB-Q SCH (12:00)
--- NOTE | 2020-03-01 20:32 | Consultation ---
History of Present Illness Consult date: 03/01/20 Requesting physician: JANIE SAEED Reason for consult: dyspnea History of present illness: 54 year-old -[place] female swith generalized body aches and pain, cough and shortness of breath, fever with chills. Shortness of breath is said to be worse on on exertion and improves upon resting. Patient denies any chest pain, no nausea vomiting, no headache or dizziness, no hematuria or dysuria. She admits to losing her sense of smell. She denies any sick contacts and no recent travel. Covid-19 positive. Currently on RA. Active Medications Acetaminophen (Acetaminophen 325 Mg Tab) 650 mg PO Q4H PRN PRN Reason: Pain MILD(1-3)/Fever >100.5/ANDUJAR Last Admin: 02/29/20 13:37 Dose: 650 mg Documented by: Albuterol (Albuterol 8.5 Gm Mdi Inhalation) 2 puff IH Q4HRT PRN PRN Reason: Shortness Of Breath Amlodipine Besylate (Amlodipine 10 Mg Tab) 10 mg PO QDAY [facility] Last Admin: 03/01/20 09:04 Dose: 10 mg Documented by: Ascorbic Acid (Ascorbic Acid 500 Mg Tab) 1,000 mg PO BID [facility] Last Admin: 03/01/20 09:19 Dose: 1,000 mg Documented by: Cholecalciferol (Cholecalciferol (Vit D3) 5,000 Unit Tab) 5,000 unit PO DAILY [facility] Last Admin: 03/01/20 09:04 Dose: 5,000 unit Documented by: Dexamethasone (Dexamethasone 4 Mg Tab) 6 mg PO DAILY [facility] Stop: 03/09/20 10:01 Last Admin: 03/01/20 09:04 Dose: 6 mg Documented by: Dextrose (Dextrose 50% In Water (25gm) 50 Ml Syringe) 50 ml IV Q30MIN PRN; Protocol PRN Reason: Hypoglycemia Enoxaparin Sodium (Enoxaparin 40 Mg/0.4 Ml Inj) 40 mg SUB-Q QDAY@2200 [facility]; Protocol Last Admin: 02/29/20 21:18 Dose: 40 mg Documented by: Hydralazine HCl (Hydralazine 20 Mg/1 Ml Inj) 10 mg IV Q4H PRN PRN Reason: Blood Pressure Last Admin: 02/29/20 22:40 Dose: 10 mg Documented by: Hydrochlorothiazide (Hydrochlorothiazide 12.5 Mg Cap) 12.5 mg PO QDAY [facility] Last Admin: 03/01/20 09:03 Dose: 12.5 mg Documented by: REMDESIVIR 100 mg/ Sodium (Chloride) 250 mls @ 500 mls/hr IV Q24HR@2100 [facility] Stop: 03/04/20 21:29 Insulin Glargine (Insulin Glargine 100 Units/Ml) 30 units SUB-Q QHS [facility] Insulin Human Lispro (Insulin Lispro 100 Unit/Ml) 0 unit SUB-Q ACHS [facility]; Protocol Last Admin: 03/01/20 17:26 Dose: 10 unit Documented by: Lisinopril (Lisinopril 20 Mg Tab) 20 mg PO QDAY [facility] Last Admin: 03/01/20 09:04 Dose: 20 mg Documented by: Magnesium Hydroxide (Magnesium Hydroxide (Mom) Oral Liqd Udc) 30 ml PO Q4H PRN PRN Reason: Constipation Morphine Sulfate (Morphine 2 Mg/1 Ml Inj) 2 mg IV Q4H PRN PRN Reason: Pain, Moderate (4-6) Ondansetron HCl (Ondansetron 4 Mg/2 Ml Inj) 4 mg IV Q8H PRN PRN Reason: Nausea And Vomiting Sodium Chloride (Sodium Chloride 0.9% 10 Ml Flush Syringe) 10 ml IV BID [facility] Last Admin: 03/01/20 10:42 Dose: 10 ml Documented by: Sodium Chloride (Sodium Chloride 0.9% 10 Ml Flush Syringe) 10 ml IV PRN PRN PRN Reason: LINE FLUSH Sodium Chloride (Sodium Chloride 0.9% 50 Ml Ivpb) 50 ml IV Q24HR@2100 [facility] Stop: 03/04/20 21:01 Last Admin: 02/29/20 17:12 Dose: 50 ml Documented by: Zinc Sulfate (Zinc Sulfate 220 Mg Cap) 220 mg PO QDAY [facility] Last Admin: 03/01/20 09:04 Dose: 220 mg Documented by: Past History Past Medical History: diabetes, hypertension Past Surgical History: Other (Fibroid removal in 2008) Social history: no significant social history Family history: no significant family history Medications and Allergies Allergies Allergy/AdvReac Type Severity Reaction Status Date / Time latex Allergy Shortness Verified 02/28/20 22:36 of Breath Home Medications Medication Instructions Recorded Confirmed Last Taken Type Dapagliflozin Propanediol [Farxiga] 10 mg PO DAILY 02/29/20 02/29/20 02/27/20 History 10 mg Lisinopril/Hydrochlorothiazide 1 each PO DAILY 02/29/20 02/29/20 02/27/20 History [Zestoretic 10-12.5 mg Tablet] 1 tab Metformin HCl [metFORMIN] 1,000 mg PO BID 02/29/20 02/29/20 02/27/20 History 1000 mg amLODIPine [Norvasc] 10 mg PO DAILY 02/29/20 02/29/20 02/27/20 History 10 mg Active Meds: Active Medications Acetaminophen (Acetaminophen 325 Mg Tab) 650 mg PO Q4H PRN PRN Reason: Pain MILD(1-3)/Fever >100.5/ANDUJAR Last Admin: 02/29/20 13:37 Dose: 650 mg Documented by: Albuterol (Albuterol 8.5 Gm Mdi Inhalation) 2 puff IH Q4HRT PRN PRN Reason: Shortness Of Breath Amlodipine Besylate (Amlodipine 10 Mg Tab) 10 mg PO QDAY [facility] Last Admin: 03/01/20 09:04 Dose: 10 mg Documented by: Ascorbic Acid (Ascorbic Acid 500 Mg Tab) 1,000 mg PO BID [facility] Last Admin: 03/01/20 09:19 Dose: 1,000 mg Documented by: Cholecalciferol (Cholecalciferol (Vit D3) 5,000 Unit Tab) 5,000 unit PO DAILY S Last Admin: 03/01/20 09:04 Dose: 5,000 unit Documented by: Dexamethasone (Dexamethasone 4 Mg Tab) 6 mg PO DAILY [facility] Stop: 03/09/20 10:01 Last Admin: 03/01/20 09:04 Dose: 6 mg Documented by: Dextrose (Dextrose 50% In Water (25gm) 50 Ml Syringe) 50 ml IV Q30MIN PRN; Protocol PRN Reason: Hypoglycemia Enoxaparin Sodium (Enoxaparin 40 Mg/0.4 Ml Inj) 40 mg SUB-Q QDAY@2200 [facility]; Protocol Last Admin: 02/29/20 21:18 Dose: 40 mg Documented by: Hydralazine HCl (Hydralazine 20 Mg/1 Ml Inj) 10 mg IV Q4H PRN PRN Reason: Blood Pressure Last Admin: 01/22/21 22:40 Dose: 10 mg Documented by: Hydrochlorothiazide (Hydrochlorothiazide 12.5 Mg Cap) 12.5 mg PO QDAY [facility] Last Admin: 03/01/20 09:03 Dose: 12.5 mg Documented by: REMDESIVIR 100 mg/ Sodium (Chloride) 250 mls @ 500 mls/hr IV Q24HR@2100 [facility] Stop: 03/04/20 21:29 Insulin Glargine (Insulin Glargine 100 Units/Ml) 30 units SUB-Q QHS [facility] Insulin Human Lispro (Insulin Lispro 100 Unit/Ml) 0 unit SUB-Q ACHS [facility]; Protocol Last Admin: 03/01/20 17:26 Dose: 10 unit Documented by: Lisinopril (Lisinopril 20 Mg Tab) 20 mg PO QDAY [facility] Last Admin: 03/01/20 09:04 Dose: 20 mg Documented by: Magnesium Hydroxide (Magnesium Hydroxide (Mom) Oral Liqd Udc) 30 ml PO Q4H PRN PRN Reason: Constipation Morphine Sulfate (Morphine 2 Mg/1 Ml Inj) 2 mg IV Q4H PRN PRN Reason: Pain, Moderate (4-6) Ondansetron HCl (Ondansetron 4 Mg/2 Ml Inj) 4 mg IV Q8H PRN PRN Reason: Nausea And Vomiting Sodium Chloride (Sodium Chloride 0.9% 10 Ml Flush Syringe) 10 ml IV BID [facility] Last Admin: 03/01/20 10:42 Dose: 10 ml Documented by: Sodium Chloride (Sodium Chloride 0.9% 10 Ml Flush Syringe) 10 ml IV PRN PRN PRN Reason: LINE FLUSH Sodium Chloride (Sodium Chloride 0.9% 50 Ml Ivpb) 50 ml IV Q24HR@2100 [facility] Stop: 03/04/20 21:01 Last Admin: 02/29/20 17:12 Dose: 50 ml Documented by: Zinc Sulfate (Zinc Sulfate 220 Mg Cap) 220 mg PO QDAY [facility] Last Admin: 03/01/20 09:04 Dose: 220 mg Documented by: Review of Systems All systems: negative Physical Examination Vital signs: Vital Signs Temp Pulse Resp BP Pulse Ox 98.3 F 80 22 131/81 95 02/28/20 22:35 02/28/20 22:35 02/28/20 22:35 02/28/20 22:35 02/28/20 22:35 General appearance: no acute distress, alert Eyes: non-icteric ENT: oropharynx moist Neck: supple Effort: normal Ascultation: Bilateral: clear Cardiovascular: regular rate and rhythm Gastrointestinal: normoactive bowel sounds, soft, non-tender, non-distended Integumentary: normal Extremities: no cyanosis, no edema, pink and warm normal mental status, non-focal exam, pupils equal and round, CN II-XII normal mood appropriate, affect normal Results - Laboratory Findings CBC and BMP: 03/01/20 04:24 03/01/20 04:24 PT/INR, D-dimer PT 13.2 Sec. (12.2-14.9) 03/01/20 04:24 INR 1.01 (0.87-1.13) 03/01/20 04:24 D-Dimer 284.01 ng/mlDDU (0-234) H 03/01/20 04:24 Abnormal lab findings: Abnormal Labs 02/28/20 02/28/20 02/29/20 22:57 22:57 02:17 WBC 4.3 L Hct 43.0 H Lymph % (Auto) 37.8 H [place] % (Auto) 10.5 H Lymph # (Auto) D-Dimer 345.92 H Sodium Chloride BUN Glucose 324 H POC Glucose Lactate Dehydrogenase 248 H C-Reactive Protein 4.40 H Albumin HDL Cholesterol Coronavirus (PCR) 02/29/20 02/29/20 02/29/20 02:17 02:17 02:17 WBC Hct Lymph % (Auto) [place] % (Auto) Lymph # (Auto) D-Dimer 395.33 H Sodium 136 L Chloride 96.9 L BUN Glucose 284 H 284 H POC Glucose Lactate Dehydrogenase 237 H C-Reactive Protein 4.80 H Albumin 3.8 L HDL Cholesterol Coronavirus (PCR) 02/29/20 02/29/20 02/29/20 06:28 07:42 08:43 WBC Hct Lymph % (Auto) [place] % (Auto) Lymph # (Auto) D-Dimer Sodium Chloride BUN Glucose POC Glucose 332 H 359 H Lactate Dehydrogenase C-Reactive Protein Albumin HDL Cholesterol 30 L Coronavirus (PCR) 02/29/20 02/29/20 02/29/20 11:02 12:30 15:55 WBC Hct Lymph % (Auto) [place] % (Auto) Lymph # (Auto) D-Dimer Sodium Chloride BUN Glucose 458 H POC Glucose 526 H 453 H Lactate Dehydrogenase C-Reactive Protein Albumin HDL Cholesterol Coronavirus (PCR) 02/29/20 02/29/20 03/01/20 20:50 Unknown 04:24 WBC 4.4 L Hct Lymph % (Auto) [place] % (Auto) 11.2 H Lymph # (Auto) 0.9 L D-Dimer Sodium Chloride BUN Glucose POC Glucose 482 H Lactate Dehydrogenase C-Reactive Protein Albumin HDL Cholesterol Coronavirus (PCR) Positive A 03/01/20 03/01/20 03/01/20 04:24 04:24 04:24 WBC Hct Lymph % (Auto) [place] % (Auto) Lymph # (Auto) D-Dimer 284.01 H Sodium Chloride BUN 19 H Glucose 420 H POC Glucose Lactate Dehydrogenase 251 H C-Reactive Protein 6.20 H Albumin 3.6 L HDL Cholesterol Coronavirus (PCR) 03/01/20 03/01/20 03/01/20 07:46 11:53 17:18 WBC Hct Lymph % (Auto) [place] % (Auto) Lymph # (Auto) D-Dimer Sodium Chloride BUN Glucose POC Glucose 365 H 341 H 463 H Lactate Dehydrogenase C-Reactive Protein Albumin HDL Cholesterol Coronavirus (PCR) - Diagnostic Findings Chest x-ray: report reviewed, image reviewed Assessment and Plan Imp: 1. Covid-19 2. Viral pneumonia 3. Acute respiratory failure, hypoxia 4. Morbid obesity Rec: 1. Remdesivir while in-house 2. Decadron x 10 days 2. Agree with d/c ABX 4. Has been doing well on RA all day; consider d/c home to complete Decadron if oxygenation continues to be stable 5. Will follow Plan of care reviewed w/ patient, she understands/agrees Thanks for the consult.
[2020-03-01] MEDS ORDERED: REMDESIVIR 100 MG in SODIUM CHLORIDE 0.9% 250ML 250 ML IV SCH (21:00)
[2020-03-01] MEDS ORDERED: INSULIN GLARGINE 100 UNITS/ML SUB-Q SCH (22:00)
[2020-03-01] MEDS: SODIUM CHLORIDE 0.9% 50 ML IVPB IV SCH (22:57)
[2020-03-01] MEDS: ENOXAPARIN 40 MG/0.4 ML INJ SUB-Q SCH (22:58)
[2020-03-02 06:13] LABS: Hematocrit 42.1 % (30.3-42.9); Hemoglobin 13.9 gm/dl (10.1-14.3); Mean Corpuscular HGB Conc 33 % (30-34); Mean Corpuscular Volume 88 fl (79-97); Platelet Count 309 K/mm3 (140-440); Red Blood Count 4.78 M/mm3 (3.65-5.03); Red Cell Distribution Width 13.7 % (13.2-15.2)
[2020-03-02 06:27] LABS: Blood Urea Nitrogen 18 mg/dL (7-17); Calcium 8.8 mg/dL (8.4-10.2); Hemolysis Index 3
[2020-03-02 06:35] LABS: BUN/Creatinine Ratio 30
[2020-03-02 06:36] LABS: Alanine Aminotransferase 6 units/L (7-56); Albumin 3.5 g/dL (3.9-5); Bilirubin,Direct < 0.2 mg/dL (0-0.2)
[2020-03-02] MEDS: INSULIN LISPRO 100 UNIT/ML SUB-Q SCH ×3 (07:30→17:57)
[2020-03-02] MEDS: DEXAMETHASONE 4 MG TAB PO SCH (10:32)
[2020-03-02] MEDS: hydroCHLOROthiazide 12.5 MG CAP PO SCH (10:34)
[2020-03-02] MEDS: ZINC SULFATE 220 MG CAP PO SCH (10:35)
[2020-03-02] MEDS: ASCORBIC ACID 500 MG TAB PO SCH (10:35)
[2020-03-02] MEDS: amLODIPine 10 MG TAB PO SCH (10:35)
[2020-03-02 10:36] VITALS: BP 128/75
[2020-03-02] MEDS: LISINOPRIL 20 MG TAB PO SCH (10:36)
[2020-03-02] MEDS: CHOLECALCIFEROL (VIT D3) 5,000 UNIT TAB PO SCH (10:36)
--- NOTE | 2020-03-02 13:14 | Discharge Summary ---
Providers - Providers Date of Admission: 02/29/20 05:02 Attending physician: JANIE SAEED MD 02/29/20 03:39 Consult to Physician [CONS] Routine Comment: Consulting Provider: SYLVIA CASTANON Physician Instructions: Reason For Exam: covid 02/29/20 04:37 Consult to Dietitian/Nutrition [CONS] Routine Physician Instructions: Reason For Exam: Reason for Consult: Diet education 02/29/20 10:52 Consult to Physician [CONS] Routine Comment: Consulting Provider: WILLA OLSON Physician Instructions: Reason For Exam: covid pneumonia Primary care physician: [employer] Hospitalization Reason for admission: Shortness of breath Condition: Stable Hospital course: 54 year-old -[place] female seen in the emergency room today with complaint of generalized body aches and pain, cough and shortness of breath, cough fever with chills a lot which started 2 days ago. Patient tested positive for COVID-19 yesterday. Shortness of breath is said to be worse on on exertion and improves upon resting. Patient denies any chest pain, no nausea vomiting, no headache or dizziness, no hematuria or dysuria. She admits to losing her sense of smell. She denies any sick contacts and no recent travel. She denies any contact with anyone with COVID-19. Work-up in the emergency room, chest x-ray was suspicious for pneumonia. Patient admitted with pneumonia possibly secondary to to COVID-19. 03/01: Continues with mild hypoxia, and on oxygen, prones her self, cough and chest pain with the cough due to Muscle pain. Adjust insulin. Discussed with the patient and also with the Nurse, will make adjustments to diet as requested by the patient. 03/02: Patient is clinically improved today has been off oxygen for 24 hours maintaining saturation of 96%. Cough is improving. Plan discharge today counseling provided to the patient on how to protect family members continue self-isolation for at minimum 12 more days. Continue to wear mask as recommended by the state. Will complete steroid therapy monitor blood sugars may need increasing based on her diabetic medication. (1) Pneumonia (2) COVID-19 (3) Diabetes mellitus with hyperglycemia (4) Hypertension (5) Leukopenia (6) morbid obesity Disposition: TO HOME OR SELFCARE Time spent for discharge: 35 Core Measure Documentation - Palliative Care Palliative Care/ Comfort Measures: Not Applicable - Core Measures Any of the following diagnoses?: none Exam - Physical Exam Narrative exam: VITAL SIGNS: Reviewed. GENERAL: The patient appears normally developed, Vital signs as documented. HEAD: No signs of head trauma. EYES: Pupils are equal. Extraocular motions intact. EARS: Hearing grossly intact. MOUTH: Oropharynx is normal. NECK: No adenopathy, no JVD. CHEST: Chest with clear breath sounds bilaterally. No wheezes, rales, or rhonchi. CARDIAC: Regular rate and rhythm. S1 and S2, without murmurs, gallops, or rubs. VASCULAR: No Edema. Peripheral pulses normal and equal in all extremities. ABDOMEN: Soft, non tender and non distended. No rebound or guarding, and no masses palpated. Bowel Sounds normal. MUSCULOSKELETAL: Good range of motion of all major joints. Extremities without clubbing, cyanosis or edema. NEUROLOGIC EXAM: Alert and oriented x 3 No focal sensory or strength deficits. Speech normal. Follows commands. PSYCHIATRIC: Mood normal. SKIN: detail exam as documented in skin assessment - Constitutional Vitals: Temp Pulse Resp BP Pulse Ox 98 F 67 18 128/75 99 03/02/20 10:41 03/02/20 10:41 03/02/20 10:41 03/02/20 10:41 03/02/20 11:42 Plan Activity: advance as tolerated, fall precautions Diet: diabetic Special Instructions: record daily weights, record daily BP diary Additional Instructions: Continue isolation from family and use mass precautions Follow up with: PRIMARY CARE, [Primary Care Provider] - 3-5 Days CHERYL MAY MD [Staff Physician] - 7 Days SYLVIA CASTANON MD [Staff Physician] - 7 Days Prescriptions: dexAMETHasone [Dexamethasone] 6 mg PO DAILY #7 tablet Albuterol Mdi (or & Nicu Only) [ProAir HFA Inhaler] 2 puff IH Q4HRT PRN #1 inha PRN Reason: Shortness Of Breath Ascorbic Acid [Vitamin C] 1,000 mg PO BID #60 tablet Cholecalciferol (Vitamin D3) [Vitamin D3] 5,000 unit PO DAILY #30 tablet Zinc Sulfate 220 mg PO QDAY #30 capsule
[2020-03-02] MEDS ORDERED: INSULIN GLARGINE 100 UNITS/ML SUB-Q SCH (22:00)
== END 2020-03-02 17:35 | disposition home or self-care (01) | DRG 177 ==
LOC: ED 20:53 → 3A 02-29 05:02
PROVIDERS: ADMIT Internal Medicine Geriatric Medicine; ATTEND Internal Medicine
PROC: XW033E5 Introduction of Remdesivir Anti-infective into Peripheral Vein, Percutaneous Approach, New Technology Group 5 (ICD-10-PCS; principal; 2020-02-29)
DX: U07.1 COVID-19 (principal); J12.82 Pneumonia due to coronavirus disease 2019; J96.01 Acute respiratory failure with hypoxia; Z68.41 Body mass index [BMI] 40.0-44.9, adult; I10 Essential (primary) hypertension; E11.65 Type 2 diabetes mellitus with hyperglycemia; D72.819 Decreased white blood cell count, unspecified; E66.01 Morbid (severe) obesity due to excess calories; Z91.040 Latex allergy status; Z79.899 Other long term (current) drug therapy
CPT/HCPCS: 36415; 71046; 80048; 80053; 80061; 80076; 82728; 82947; 82962; 83615; 84145; 85025; 85027; 85379; 85610; 86140; 94760; 96365; 96367; 96375; G0378; J0360; J0456; J0696; J1100; J1650; J1815; J8540; U0003